=== PATIENT | female | born 1970 | race Caucasian/White ===

== ENCOUNTER → 2023-10-30 10:53 | Outpatient (REF) | payer OTHER, SELFPAY ==
[2023-10-30 12:29] LABS: Rubella Positive
[2023-10-30 12:51] LABS: Hepatitis B Surface Antibody Positive
[2023-11-01 13:58] LABS: Quantiferon Plus TB1 minus NIL 0.03 IU/mL (<=0.34); Quantiferon Plus TB2 minus NIL 0.01 IU/mL (<=0.34); Quantiferon TB Gold Plus Negative (Negative)
== END ==
LOC: REG 10:53
PROVIDERS: ATTENDING PHYSICIAN Nurse Practitioner Family
DX: Z23 Encounter for immunization (principal)
CPT/HCPCS: 36415; 86480; 86706; 86735; 86762; 86765; 86787